=== PATIENT | female | born 1935 | race Caucasian/White ===

== ENCOUNTER → 2020-07-10 | Outpatient (CLI) | payer MEDICARE | END | disposition home or self-care (01) | LOC: STAR 11:41 | PROVIDERS: ATTEND Surgery | DX: Z20.822 Contact with and (suspected) exposure to COVID-19 (principal) | CPT/HCPCS: U0003; U0005 ==

== ENCOUNTER 2020-07-14 11:07 | Day surgery (SDC) | payer MEDICARE ==
[~2020-07-14 11:07] MED LIST: VISIPAQUE 270 MG/ML, 50ML BOTTLE ONE
[2020-07-14] MEDS ORDERED: NALOXONE 1 MG/ML, 2ML ONE (11:59)
[2020-07-14] MEDS ORDERED: FLUMAZENIL 0.1 MG/1 ML, 5ML ONE (11:59)
[2020-07-14] MEDS ORDERED: MIDAZOLAM 1 MG/ML, 5ML ONE (11:59)
[2020-07-14] MEDS ORDERED: HEPARIN 1,000 UNITS/ML, 10ML ONE (11:59)
[2020-07-14] MEDS ORDERED: PROTAMINE SULFATE 10 MG/ML, 25ML ONE (11:59)
[2020-07-14] MEDS ORDERED: FENTANYL PF 100 MCG/2ML ONE (11:59)
[2020-07-14 12:43] LABS: ALANINE AMINOTRANSFERASE 29 U/L (12-78); ALBUMIN 3.8 g/dL (3.4-5.0); ANION GAP 5 mmol/L (5-15); CALCIUM 9.5 mg/dL (8.5-10.1); CHLORIDE 110 mmol/L (98-107); CREATININE 0.68 mg/dL (0.55-1.02)
[2020-07-14] MEDS ORDERED: LIDOCAINE 1%, 10ML ONE (12:43)
[2020-07-14 12:45] LABS: ALKALINE PHOSPHATASE 75 U/L (45-117); BILIRUBIN,TOTAL 0.5 mg/dL (0.2-1.0); TOTAL PROTEIN 6.7 g/dL (6.4-8.2)
[2020-07-14 12:51] LABS: BASOPHILS % (AUTO) 1 % (0-1); EOSINOPHILS % (AUTO) 5 % (1-7); LYMPHOCYTES % (AUTO) 31 % (22-44); MEAN CORPUSCULAR HEMOGLOBIN 34.7 pg (27.0-34.8); MEAN CORPUSCULAR HGB CONC 34.4 g/dL (32.4-35.8); MEAN PLATELET VOLUME 9.7 fL (7.4-10.4); MONOCYTES % (AUTO) 11 % (2-9); NEUTROPHILS % (AUTO) 51 % (42-75); PLATELET COUNT 235 x10^3/uL (130-400); RED BLOOD COUNT 4.17 x10^6/uL (3.82-5.3); RED CELL DISTRIBUTION WIDTH 13.8 % (9.6-15.2)
[2020-07-14 12:52] LABS: MD NO
[2020-07-18] MEDS ORDERED: THYR180T PO (11:36)
[2020-07-23] MEDS ORDERED: CLOP75TA PO (12:40)
[2020-07-23] MEDS ORDERED: ASPI-963 PO (12:40)
[2020-07-23] MEDS ORDERED: HYDR-2214 PO (14:35)
== END 2020-07-14 16:20 | disposition home or self-care (01) ==
LOC: SDC 11:07
PROVIDERS: ATTEND Surgery
DX: I70.221 Atherosclerosis of native arteries of extremities with rest pain, right leg (principal); T82.856A Stenosis of peripheral vascular stent, initial encounter; I70.238 Atherosclerosis of native arteries of right leg with ulceration of other part of lower leg; E03.9 Hypothyroidism, unspecified; M20.41 Other hammer toe(s) (acquired), right foot; Z79.82 Long term (current) use of aspirin; Z79.890 Hormone replacement therapy; Z79.899 Other long term (current) drug therapy; Z96.643 Presence of artificial hip joint, bilateral; Z98.890 Other specified postprocedural states; Z80.1 Family history of malignant neoplasm of trachea, bronchus and lung; Z80.0 Family history of malignant neoplasm of digestive organs; Y83.8 Other surgical procedures as the cause of abnormal reaction of the patient, or of later complication, without mention of misadventure at the time of the procedure
CPT/HCPCS: 36247; 36415; 75710; 80053; 85025; 99156; C1751; C1769; C1894; J2250; J3010; Q9966; 36217; 76937; 99157; J1644; J2720; J2310